=== PATIENT | male | born 1965 | race Caucasian/White ===

== ENCOUNTER 2018-09-08 05:42 | Day surgery (SDC) | payer BC ==
[2018-09-08] MEDS ORDERED: THROMBIN 5000 UNIT VIAL (06:35)
[2018-09-08] MEDS ORDERED: GELATIN SIZE 100 SPONGE (06:35)
[2018-09-08] MEDS ORDERED: LIDOCAINE 0.5% (SDV) 50 ML INJ (06:36)
[2018-09-08] MEDS ORDERED: LIDOCAINE 1%/EPI 30 ML INJ (07:16)
[2018-09-08] MEDS ORDERED: SEVOFLURANE 15 MIN (07:20)
[2018-09-08] MEDS ORDERED: PROPOFOL 20 ML ×2 (07:23→08:16)
[2018-09-08] MEDS ORDERED: LIDOCAINE 2% (SDV) 5 ML INJ (07:23)
[2018-09-08] MEDS ORDERED: SUCCINYLCHOLINE CHLORIDE 100 MG/5 ML SYG IV ×2 (07:23→08:15)
[2018-09-08] MEDS ORDERED: ROCURONIUM 50 MG INJ (07:23)
[2018-09-08] MEDS ORDERED: MIDAZOLAM 1 MG/ML 2 ML INJ (07:25)
[2018-09-08] MEDS: LACTATED RINGER'S 500 ML IV (08:00)
[2018-09-08] MEDS ORDERED: CEFAZOLIN 1 GM INJ (08:33)
[2018-09-08] MEDS ORDERED: FAMOTIDINE 20 MG INJ (08:41)
[2018-09-08] MEDS ORDERED: DEXAMETHASONE 4 MG/ML 5 ML INJ (08:41)
[2018-09-08] MEDS ORDERED: ONDANSETRON 4 MG INJ (08:41)
[2018-09-08] MEDS: POLYMYXIN/BACITRACIN 1L IRRIG IRR (09:03)
[2018-09-08] MEDS: LIDOCAINE 1%/EPI 30 ML INJ (09:03)
[2018-09-08] MEDS: BUPIVACAINE 0.5% (SDV) 30 ML INJ (09:03)
[2018-09-08] MEDS ORDERED: FENTAnyl 50 MCG/ML VIAL IV (11:30)
[2018-09-08] MEDS ORDERED: DIPHENHYDRAMINE 50 MG INJ IV (11:30)
[2018-09-08] MEDS ORDERED: HYDROmorphONE 1 MG/5 ML IV SYRINGE IV (11:30)
[2018-09-08] MEDS ORDERED: OXYCODONE/ACETAMINOPHEN (5/325) TAB PO (11:30)
[2018-09-08] MEDS ORDERED: PROCHLORPERAZINE 10 MG INJ IV (11:30)
[2018-09-08] MEDS ORDERED: MEPERIDINE 25 MG INJ IV (11:30)
[2018-09-08] MEDS: HYDROmorphONE 1 MG/5 ML IV SYRINGE IV ×2 (11:43→11:56)
[2018-09-08] MEDS: ONDANSETRON 4 MG INJ IV (11:44)
== END 2018-09-08 16:51 | disposition home or self-care (01) ==
LOC: SDS 05:42
DX: M51.16 Intervertebral disc disorders with radiculopathy, lumbar region (principal)
CPT/HCPCS: 63030; 72110; 88304